=== PATIENT | female | born 1955 | race Caucasian/White ===

== ENCOUNTER 2020-10-27 13:13 | Inpatient (IN) | payer MEDICAID ==
[~2020-10-27] VITALS: Ht 182.8 cm; Wt 93.0 kg
[2020-10-27] MEDS ORDERED: TYLENOL EXTRA500 M2 PO (14:43)
[2020-10-27] MEDS ORDERED: ARTIFICIAL TEAR15 M9 OP (14:44)
[2020-10-27] MEDS ORDERED: ASPIRIN FOR CHI81 MG PO (14:47)
[2020-10-27] MEDS ORDERED: BENZTROPINE MESY1 MG PO (14:55)
[2020-10-27] MEDS ORDERED: BIOTENE MOIST44.3 ML PO (14:57)
[2020-10-27] MEDS ORDERED: CALCIUM + VITA1 EAC2 PO (14:58)
[2020-10-27] MEDS ORDERED: CETIRIZINE10 MG PO (15:24)
[2020-10-27] MEDS ORDERED: KLONOPIN1 M1 PO (15:25)
[2020-10-27] MEDS ORDERED: DOK100 M1 PO (15:27)
[2020-10-27] MEDS ORDERED: ELIQUIS2.5 M1 PO (15:28)
[2020-10-27] MEDS ORDERED: Ferrex 150150 MG PO (15:29)
[2020-10-27] MEDS ORDERED: NEURONTIN300 MG PO (15:30)
[2020-10-27] MEDS ORDERED: Ipratropium Brom3 ML INH (15:34)
[2020-10-27] MEDS ORDERED: LAC-HYDRIN FIV226 GM T (16:07)
[2020-10-27] MEDS ORDERED: LIPITOR20 MG PO (16:08)
[2020-10-27] MEDS ORDERED: MELATONIN3 MG PO (16:09)
[2020-10-27] MEDS ORDERED: Metolazone5 MG PO (16:09)
[2020-10-27] MEDS ORDERED: MULTIPLE VITAM1 EACH PO (16:10)
[2020-10-27] MEDS ORDERED: OMEPRAZOLE40 MG PO (16:11)
[2020-10-27] MEDS ORDERED: POTASSIUM CHLO10 ME4 PO (16:12)
[2020-10-27] MEDS ORDERED: RISPERIDONE M-TA2 MG PO (16:17)
[2020-10-27] MEDS ORDERED: Tegretol-Xr 20200 MG PO (16:18)
[2020-10-27] MEDS ORDERED: TYLENOL325 M1 PO (16:19)
[2020-10-27] MEDS ORDERED: ZYPREXA20 M1 PO (16:20)
[2020-10-27 18:22] VITALS: BP 142/76
[2020-10-27 18:43] LABS: BILIRUBIN Negative (Negative); BLOOD Trace-Intact (Negative); CLARITY Cloudy (Clear); COLOR Yellow (Yellow); GLUCOSE Negative (Negative); KETONE Negative (Negative); LEUKO ESTERASE 2+ (Negative); NITRITE Negative (Negative); PH 6.5 (4.5-8.0); UROBILINOGEN 0.2 E.U./dl (0.0-1.0)
[2020-10-27 19:30] LABS: BACTERIA 4+; EPITHELIAL CELLS 0-2; WBC 21-30 wbc/hpf (0-5)
[2020-10-27 20:21] VITALS: BP 128/68; BP 146/72
[2020-10-28 06:26] LABS: BASO # 0.1 10*3/uL (0.0-0.1); BASO % 0.7 % (0.0-1.0); EOS # 0.2 10*3/uL (0.0-0.4); EOS % 3.1 % (1.0-4.0); HEMATOCRIT 30.9 % (37.0-47.0); LYMPH # 1.3 10*3/uL (1.3-4.4); LYMPH % 18.7 % (27.0-41.0); MEAN CELL VOLUME 94.2 fl (81.0-99.0); MEAN CORPUSCULAR HGB 31.1 pg (27.0-31.0); MEAN PLATELET VOLUME 10.2 fl (9.6-12.3); MONO # 0.6 10*3/uL (0.1-1.0); MONO % 8.2 % (3.0-9.0); NEUT # 4.7 10*3/uL (2.3-7.9); NEUT % 68.7 % (47.0-73.0); PLATELET COUNT AUTOMATED 261 10*3/uL (130-400); RED BLOOD COUNT 3.28 10*6/uL (4.10-5.10); RED CELL DISTRI WIDTH 15.6 % (0-14.5); WHITE BLOOD COUNT 6.9 10*3/uL (4.8-10.8)
[2020-10-28 06:44] LABS: ALBUMIN 3.2 gm/dl (3.1-4.5); BUN 5 mg/dl (7-24); CHLORIDE 88 mmol/L (98-107); CHOLESTEROL 151 mg/dL (<200); CREATININE 0.49 mg/dL (0.55-1.02); LDL CHOLESTEROL 55 mg/dL (9-159); POTASSIUM 2.7 mmol/L (3.5-5.1); SGOT/AST 12 IU/L (3-35); SGPT/ALT 18 U/L (12-78); SODIUM 128 mmol/L (136-145); TOTAL PROTEIN 6.7 gm/dL (6.4-8.2); TRIGLYCERIDES 159 mg/dl (<150)
[2020-10-28 06:52] LABS: ALKALINE PHOSPHATASE 204 U/L (45-117); CARBAMAZEPINE (TEGRETOL) TOTAL 7.3 ug/ml (4-12)
[2020-10-28 08:00] VITALS: BP 130/61
[2020-10-28 20:00] VITALS: BP 130/82
[2020-10-29 06:35] LABS: BUN 12 mg/dl (7-24); CHLORIDE 92 mmol/L (98-107); CREATININE 0.44 mg/dL (0.55-1.02); POTASSIUM 3.6 mmol/L (3.5-5.1); SODIUM 130 mmol/L (136-145)
[2020-10-29 07:33] VITALS: BP 131/62
[2020-10-29 20:00] VITALS: BP 141/83
[2020-10-30 07:48] VITALS: BP 102/61
[2020-10-30 19:44] VITALS: BP 134/74
[2020-10-31 07:22] VITALS: BP 146/68
[2020-10-31 20:00] VITALS: BP 117/50
[2020-11-01 08:00] VITALS: BP 118/84
[2020-11-01] MEDS ORDERED: MIRTAZAPINE15 M2 PO (11:07)
[2020-11-01] MEDS ORDERED: KLONOPIN0.5 MG PO (11:07)
[2020-11-01] MEDS ORDERED: TEGRETOL XR200 MG PO (11:07)
[2020-11-01] MEDS ORDERED: PALIPERIDONE ER6 MG PO (11:07)
[2020-11-01] MEDS ORDERED: INVEGA SUSTENN156 MG IM (12:01)
== END 2020-11-01 13:40 | DRG 750 ==
LOC: 3N 13:13
PROVIDERS: Student in an Organized Health Care Education/Training Program; ADMIT Psychiatry & Neurology Psychiatry; ATTEND Psychiatry & Neurology Psychiatry
DX: F25.9 Schizoaffective disorder, unspecified (principal); F41.9 Anxiety disorder, unspecified; N32.81 Overactive bladder; K21.9 Gastro-esophageal reflux disease without esophagitis; R27.0 Ataxia, unspecified; F31.9 Bipolar disorder, unspecified; R82.71 Bacteriuria; E66.3 Overweight; N30.00 Acute cystitis without hematuria; I10 Essential (primary) hypertension; G62.9 Polyneuropathy, unspecified; M89.49 Other hypertrophic osteoarthropathy, multiple sites; I87.2 Venous insufficiency (chronic) (peripheral); E78.5 Hyperlipidemia, unspecified; Z86.718 Personal history of other venous thrombosis and embolism; Z82.49 Family history of ischemic heart disease and other diseases of the circulatory system; Z88.0 Allergy status to penicillin; Z79.82 Long term (current) use of aspirin; Z79.899 Other long term (current) drug therapy; Z68.27 Body mass index [BMI] 27.0-27.9, adult